=== PATIENT | male | born 1980 | race Caucasian/White ===

== ENCOUNTER 2023-11-19 13:29 | Outpatient (AMB) | payer OTHER, SELFPAY ==
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
[2023-11-19 13:32] VITALS: BP 122/78; PULSE 86; O2SAT 99; BMI 20.6
== END 2023-11-19 14:50 | disposition home or self-care (01) ==
PROVIDERS: Visit Provider Nurse Practitioner Family
DX: H53.149 Visual discomfort, unspecified (principal); F07.81 Postconcussional syndrome; G44.329 Chronic post-traumatic headache, not intractable
CPT/HCPCS: 99204

== ENCOUNTER → 2023-11-19 13:29 | Outpatient (BNVA) | payer OTHER, SELFPAY | PROVIDERS: Visit Provider Nurse Practitioner Family ==

== ENCOUNTER 2024-01-04 07:55 | Outpatient (AMB) | payer OTHER, SELFPAY ==
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
== END 2024-01-04 13:35 | disposition home or self-care (01) ==
LOC: HO.HSMS 07:55
PROVIDERS: Visit Provider Nurse Practitioner Family
DX: F07.81 Postconcussional syndrome (principal)
CPT/HCPCS: 99211

== ENCOUNTER → 2024-01-04 07:55 | Outpatient (BNVA) | payer OTHER, SELFPAY | PROVIDERS: Visit Provider Nurse Practitioner Family ==